=== PATIENT | female | born 1995 | race Caucasian/White ===

== ENCOUNTER 2024-03-03 14:09 | Observation (INO) | payer OTHER, SELFPAY ==
[2024-03-03 14:17] VITALS: BP 113/64; BMI 33.4
== END 2024-03-03 16:52 | disposition home or self-care (01) ==
LOC: LDRP 14:09
PROVIDERS: ADMITTING PHYSICIAN Obstetrics & Gynecology
DX: O36.8130 Decreased fetal movements, third trimester, not applicable or unspecified (principal); Z3A.36 36 weeks gestation of pregnancy; J45.909 Unspecified asthma, uncomplicated; O99.343 Other mental disorders complicating pregnancy, third trimester; F32.A Depression, unspecified; Z91.040 Latex allergy status
CPT/HCPCS: 76818; 87070; G0378

== ENCOUNTER 2024-03-29 11:41 | Inpatient (IN) | payer OTHER, SELFPAY ==
[2024-03-29 11:47] VITALS: BP 117/64; BMI 34.6
[2024-03-29] MEDS: LR 1000 IV ×3 (12:30→20:49)
[2024-03-29 12:48] LABS: % Basophils 0.3 % (0-2); % Eosinophils 0.5 % (0-6); % Immature Granulocytes 0.5 % (0-0.5); % Lymphocytes 15.4 % (20.5-51.1); % Monocytes 6.4 % (1.7-9.3); % Neutrophils 76.9 % (42.2-75.2); Absolute Monocytes 0.4 10^3/uL (0.1-0.6); Hematocrit 32.8 % (37.0-47.0); Mean Corp Hgb Conc. 33.5 g/dL (33.0-37.0); Mean Corpuscular Hgb 27.2 pg (27.0-31.0); Mean Platelet Volume 10.9 fL (7.4-10.4); Nucleated Red Blood Cells % 0 %; Platelet Count 183 10^3/uL (130-400); Red Blood Cell Count 4.05 10^6/uL (4.20-5.40); Red Cell Dist. Width 14.7 % (11.5-14.5); White Blood Cell Count 6.4 10^3/uL (4.8-10.8)
[2024-03-29] MEDS: PITOCIN 30 UNITS/NSS 500 ML IV (13:09)
[2024-03-29] MEDS: FENTANYL/BUPIVACAINE 100 EPIDURAL ×2 (16:03→23:21)
[2024-03-29] MEDS: SUBLIMAZE 100 MCG EPIDURAL (16:03)
[2024-03-29] MEDS: ZOFRAN 4 MG IV (22:23)
[2024-03-30] MEDS: MOTRIN 600 MG PO ×3 (03:41→19:32)
[2024-03-30] MEDS: TYLENOL 650 MG PO ×3 (08:23→19:23)
[2024-03-30] MEDS: SENOKOT-S 1 TABLET PO (08:23)
[2024-03-30] MEDS: ZOLOFT 50 MG PO (08:24)
[2024-03-31] MEDS: TYLENOL 650 MG PO ×2 (02:28→08:28)
[2024-03-31] MEDS: MOTRIN 600 MG PO ×2 (02:29→08:28)
[2024-03-31 02:53] LABS: Hematocrit 26.7 % (37.0-47.0)
[2024-03-31] MEDS: ZOLOFT 50 MG PO (08:28)
[2024-03-31 14:27] LABS: Syphilis/T. pallidum Ab Reflex Negative (Negative)
== END 2024-03-31 11:35 | disposition home or self-care (01) | DRG 807 ==
LOC: LDRP 11:41
PROVIDERS: ADMITTING PHYSICIAN Obstetrics & Gynecology; FAMILY PHYSICIAN Obstetrics & Gynecology
PROC: 10E0XZZ Delivery of Products of Conception, External Approach (ICD-10-PCS; 2024-03-30)
PROC: 6A550ZT Pheresis of Cord Blood Stem Cells, Single (ICD-10-PCS; 2024-03-30)
DX: O42.02 Full-term premature rupture of membranes, onset of labor within 24 hours of rupture (principal); Z37.0 Single live birth; Z3A.39 39 weeks gestation of pregnancy; J45.909 Unspecified asthma, uncomplicated; O99.344 Other mental disorders complicating childbirth; F32.A Depression, unspecified; F41.9 Anxiety disorder, unspecified; O69.2XX0 Labor and delivery complicated by other cord entanglement, with compression, not applicable or unspecified; O69.3XX0 Labor and delivery complicated by short cord, not applicable or unspecified; O90.81 Anemia of the puerperium; D64.9 Anemia, unspecified
CPT/HCPCS: 36415; 85014; 85018; 85025; 86780; 86850; 86900; 86901

== ENCOUNTER → 2024-10-18 13:19 | Outpatient (REF) | payer OTHER, SELFPAY | LOC: RAD 13:19 | PROVIDERS: ATTENDING PHYSICIAN Nurse Practitioner | DX: M25.532 Pain in left wrist (principal) | CPT/HCPCS: 73110 ==